=== PATIENT | male | born 1985 | race African-American/Black ===

== ENCOUNTER 2022-10-07 06:54 | Outpatient (REF) | payer BC, SELFPAY ==
[2022-10-07 11:53] LABS: Basophils Absolute Auto 0.1 X10*3/uL (0.0-0.2); Basophils Percent Auto 1.1 % (0-2); Eosinophils Absolute Auto 1.4 X10*3/uL (0.0-0.4); Eosinophils Percent Auto 26.4 % (0-4); Hematocrit 45.6 % (42.0-52.0); Hemoglobin 14.9 g/dl (14.0-18.0); Imm Gran Abs Auto 0.02 X10*3/uL (0.00-0.03); Imm Gran Pct Auto 0.4 % (0.0-0.4); Lymphocytes Absolute Auto 1.1 X10*3/uL (1.2-4.9); Lymphocytes Percent Auto 21.1 % (20-40); MANUAL DIFF FLAG SCAN; Mean Corpuscular HGB Conc 32.7 g/dl (31.0-36.0); Monocytes Absolute Auto 0.5 X10*3/uL (0.1-1.2); Monocytes Percent Auto 8.4 % (2-11); Neutrophils Absolute Auto 2.3 x10*3/uL (2.0-8.3); Neutrophils Percent Auto 42.6 % (45-73); Platelet Count 245 X10*3/uL (160-400); SCAN SMEAR FLAG 1; White Blood Count 5.4 X10*3/uL (4.8-10.8)
[2022-10-07 12:13] LABS: Alanine Aminotransferase 41 U/L (0-40); Alkaline Phosphatase 74 U/L (39-117); Anion Gap 13 (12-20); Aspartate Amino Transferase 55 U/L (5-37); Bilirubin Total 0.4 mg/dL (0.0-1.0); Blood Urea Nitrogen 29 mg/dL (9-16); Calcium 9.3 mg/dL (8.4-10.2); Carbon Dioxide 27 mmol/L (22-29); Chloride 105 mmol/L (96-108); Cholesterol 188 mg/dL; Estimated Glomerular Filt Rate 52; Glucose Fasting 86 mg/dL (60-99); HDL Cholesterol 68 mg/dL; LDL Cholesterol Calculated 110 mg/dl; Sodium 140 mmol/L (135-145); Total Protein 6.9 g/dL (6.5-8.0); Triglycerides 51 mg/dL
[2022-10-07 12:16] LABS: SLIDE REVIEW VERIFIED
[2022-10-12 16:18] LABS: Testosterone, Free 82.6 pg/mL (35.0-155.0); Testosterone, Total 677 ng/dL (250-1100)
== END 2022-10-07 06:55 | disposition home or self-care (01) ==
LOC: HO.HMGCLDS 06:54
PROVIDERS: PCP Internal Medicine; Visit Provider Internal Medicine
DX: Z00.00 Encounter for general adult medical examination without abnormal findings (principal)
CPT/HCPCS: 36415; 80053; 80061; 84402; 84403; 85025

== ENCOUNTER 2022-11-20 11:34 | Outpatient (REF) | payer BC, SELFPAY ==
--- NOTE | ~2022-11-20 | US_ITS ---
EXAMINATION: US RETROPERITONEAL COMPLETE (RENAL) CLINICAL INFORMATION: Abnormal renal function lab tests. COMPARISON: None TECHNIQUE: Real-time imaging of the kidneys and bladder. FINDINGS: RIGHT KIDNEY: 10.2 x 4.5 x 6.4 cm (SAG x AP x TRV). The kidney is normal in size, contour, and echogenicity. Renal cortical thickness is normal. No calculi or focal parenchymal lesions. No hydronephrosis. LEFT KIDNEY: 10.2 x 5.6 x 5.3 cm (SAG x AP x TRV). The kidney is normal in size, contour, and echogenicity. Renal cortical thickness is normal. No calculi or focal parenchymal lesions. No hydronephrosis. BLADDER: Well distended and normal. Bilateral ureteral jets are demonstrated. Prevoid bladder volume is 583 mL. Postvoid bladder volume is 50.8 mL. There is echogenic debris seen in the bladder. ADDITIONAL FINDINGS: The prostate appears unremarkable. US/US retroperitoneal comp IMPRESSION: 1. Normal kidneys without echogenic stones or hydronephrosis. 2. Normal bilateral ureteral jets.. 3. Small postvoid residual bladder volume with echogenic debris seen in the bladder.
== END 2022-11-20 11:35 | disposition home or self-care (01) ==
LOC: HO.HMGCX 11:34
PROVIDERS: PCP Internal Medicine; Visit Provider Internal Medicine
DX: R94.4 Abnormal results of kidney function studies (principal)
CPT/HCPCS: 76770